=== PATIENT | male | born 1960 | race Caucasian/White ===

== ENCOUNTER 2016-06-28 21:28 | Observation (INO) | payer MEDICAID ==
[2016-06-28] MEDS ORDERED: IPRATROPIUM/ALBUTEROL (0.5MG/3MG) NEB INH ONE (21:51)
[2016-06-28] MEDS ORDERED: PREDNISONE 20 MG TAB PO ONE (21:51)
--- NOTE | 2016-06-28 21:55 | Emergency Department Record ---
History of Present Illness - General Chief Complaint: Cough Stated Complaint: COUGH,CHEST CONGESTION, Time Seen by Provider: 06/28/16 21:51 Source: Patient Mode of Arrival: Ambulatory Limitations: No limitations - History of Present Illness Initial Comments: 55 yo male with a history of COPD presents to ED with a CC of wheezing and difficulty breathing for the past several days. Patient denies fevers, chills, or recent illness, but does report that he has been using his albuterol at home without much relief. Patient denies chest pain symptoms. MD Complaint: Other Onset/Timin -: Days(s) Severity: Moderate Consistency: Constant Improves With: Nothing Worsens With: Nothing Context: Other (COPD) Associated Symptoms: Denies other symptoms Treatments Prior to Arrival: Other (albuterol) - Related Data Home Medications Medication Instructions Recorded Confirmed Last Taken Ipratropium/Albuterol Sulfate 1 inh INH ASDIR PRN 10/19/14 03/01/16 06/28/16 [Iprat-Albut 0.5-3(2.5) mg/3 ml] Albuterol Sulfate [Ventolin Hfa] 1 puff INH Q6H 09/04/15 03/01/16 06/28/16 Omeprazole [Prilosec] 20 mg PO DAILY 06/28/16 06/28/16 06/28/16 Umeclidinium [place] [Incruse 1 puff INH DAILY 06/28/16 06/28/16 06/28/16 Ellipta] Previous Rx's Medication Instructions Recorded Metoprolol Tartrate [Lopressor] 50 mg PO BID #60 tablet 12/12/14 Allergies Allergy/AdvReac Type Severity Reaction Status Date / Time No Known Drug Allergies Allergy Unknown Verified 06/28/16 21:40 [NO KNOWN DRUG ALLERGIES] Travel Screening - Travel/Exposure Within Last 30 Days Have you traveled within the last 30 days?: No - Travel/Exposure Within Last Year Have you traveled outside the [place] in the last year?: No - Additonal Travel Details Have you been exposed to anyone with a communicable illness?: No - Travel Symptoms Symptom Screening: None Review of Systems Constitutional: Denies: Chills, Fever, Malaise, Night sweats Eyes: Denies: Eye discharge, Eye pain ENT: Denies: Congestion, Ear pain, Epistaxis Respiratory: Reports: Dyspnea, Wheezes. Denies: Cough Cardiovascular: Denies: Chest pain, Edema, Palpitations Endocrine: Denies: Fatigue, Heat or cold intolerance Gastrointestinal: Denies: Abdominal pain, Nausea, Vomiting Genitourinary: Denies: Incontinence, Retention Musculoskeletal: Denies: Arthralgia, Back pain, Gout, Joint swelling Skin: Denies: Bruising, Change in color Neurological: Denies: Abnormal gait, Confusion, Headache, Seizure Psychiatric: Denies: Anxiety Hematological/Lymphatic: Denies: Anemia, Blood Clots Past Medical History - SOCIAL HISTORY Smoking Status: Current every day smoker Alcohol Use: None Drug Use: Heavy Drug Use Detail:: Marijuana - RESPIRATORY Hx Respiratory Disorders: Yes Hx COPD: Yes Hx Dyspnea: Yes (5-6ys ago) Hx Pneumonia: Yes - CARDIOVASCULAR Hx Cardio Disorders: Yes Hx Irregular Heartbeat: Yes ("they told me my heart doesn't beat like normal.") Hx Palpitations: Yes - NEURO Hx Neuro Disorders: Yes Hx Dizziness: Yes Hx Headaches: Yes - GI Hx GI Disorders: Yes Hx Reflux: Yes Hx Ulcer: Yes - Hx Genitourinary Disorders: No - ENDOCRINE Hx Endocrine Disorders: No Hx Diabetes: No Hx Thyroid Disease: No - MUSCULOSKELETAL Hx Musculoskeletal Disorders: Yes Hx Gout: Yes (bilat feet on occasion) - PSYCH Hx Psych Problems: Yes Hx Anxiety: Yes Hx Behavior Problems: Yes Hx Depression: Yes - HEMATOLOGY/ONCOLOGY Hx Hematology/Oncology Disorders: No Family Medical History Any Significant Family History?: No Hx Cancer: Mother Hx Diabetes: Brother/Sister Hx Heart Disease: Brother/Sister Physical Exam - General General Appearance: Alert, Oriented x3, Cooperative, No acute distress Limitations: No limitations - Head Head exam: Atraumatic, Normocephalic, Normal inspection Head exam detail: negative: Abrasion, Contusion, Wallis's sign, General tenderness, Hematoma, Laceration - Eye Eye exam: Normal appearance. negative: Conjunctival injection, Periorbital swelling, Periorbital tenderness, Scleral icterus - ENT Ear exam: negative: Auricular hematoma, Auricular trauma Nasal Exam: negative: Active bleeding, Discharge, Dried blood, Foreign body Mouth exam: negative: Drooling, Laceration, Muffled voice, Tongue elevation - Neck Neck exam: Normal inspection. negative: Meningismus, Tenderness - Respiratory Respiratory exam: Decreased breath sounds, Wheezes. negative: Rales, Respiratory distress, Rhonchi, Stridor - Cardiovascular Cardiovascular Exam: Normal rhythm, Normal heart sounds, Tachycardia - GI/Abdominal GI/Abdominal exam: Soft. negative: Rebound, Rigid, Tenderness - Rectal Rectal exam: Deferred - exam: Deferred - Extremities Extremities exam: Normal inspection. negative: Calf tenderness, Pedal edema, Tenderness - Back Back exam: Denies: CVA tenderness (R), CVA tenderness (L) - Neurological Neurological exam: Alert, Normal gait, Oriented X3 - Psychiatric Psychiatric exam: Normal affect, Normal mood - Skin Skin exam: Normal color. negative: Abrasion Type of lesion: negative: abrasion Course Vital Signs 06/28/16 21:44 Temperature 98.4 F Pulse Rate 134 H Respiratory 22 Rate Blood Pressure 148/106 Pulse Ox 90 L - Reevaluation(s) Reevaluation #1: 06/28/16 22:16 EKG: Sinus Tachycardia 174 Normal axis No acute ST-T wave changes Reevaluation #2: 06/28/16 22:42 CXR reviewed: No acute process, COPD, chronic interstitial changes present Reevaluation #3: 06/28/16 23:49 Labs reviewed and are grossly unremarkable for acute process. Patient's pulse remains elevated (160's-170's) on examination, will admit for further evaluation and treatment. Medical Decision Making - Lab Data Result diagrams: 06/28/16 22:50 06/28/16 22:50 Disposition Disposition: Admit Clinical Impression: Acute exacerbation of chronic obstructive pulmonary disease (COPD), Tachycardia Disposition: Still a Patient at [facility] Decision to Admit: Admit from ER Decision to Admit Date: 06/28/16 Decision to Admit Time: 23:50 Condition: (2) Stable Forms: Patient Portal Access Time of Disposition: 23:50
[2016-06-28] MEDS ORDERED: 0.9 % SODIUM CHLORIDE 1000ML 1,000 ML IV SCH (22:15)
[2016-06-28 23:16] LABS: BASO % 0.2 % (0-6); EOS % 6.5 % (0-6); GRAN % 68.4 % (47-80); HEMATOCRIT 48.6 % (42.0-52.0); HEMOGLOBIN 15.6 gm/dl (14.0-18.0); LYMPH % 13.8 % (16-45); MEAN CELL VOLUME 77.5 fl (81-97); MEAN CORPUSCULAR HGB CONC 32.1 g/dl (32-36); MEAN PLATELET VOLUME 9.9 fl (7.4-10.4); MONO % 11.1 % (0-9); PLATELET COUNT 327 K/uL (130-400); RED BLOOD COUNT 6.27 M/uL (4.40-5.70); RED CELL DISTRIBUTION WIDTH 17.8 % (11.5-14.5); WHITE BLOOD COUNT W/O DIFF 8.7 K/uL (4.2-12.2)
[2016-06-28 23:18] LABS: MEAN CORPUSCULAR HEMOGLOBIN 24.8 pg (27-33)
[2016-06-28 23:28] LABS: ALB/GLOB RATIO 1.3 (1.1-1.8); ALBUMIN 4.3 gm/dL (3.5-5.0); ALKALINE PHOSPHATASE 105 U/L (38-126); ALT/SGPT 25 U/L (21-72); AST/SGOT 22 U/L (17-59); BILIRUBIN,TOTAL 0.37 mg/dL (0.2-1.3); BLOOD UREA NITROGEN 9 mg/dL (9-20); CREATINE PHOSPHOKINASE 306 U/L (55-170); CREATININE 0.9 mg/dL (0.66-1.25); EST GLOMERULAR FILTRATION RATE > 60 ml/min; GLUCOSE,RANDOM 131 mg/dL (70-110); TOTAL PROTEIN 7.6 gm/dL (6.3-8.2)
[2016-06-28 23:38] LABS: CKMB 3.1 ug/L (0-6); TROPONIN I 0.016 ng/mL (0.00-0.034)
[2016-06-29] MEDS ORDERED: IPRATROPIUM/ALBUTEROL (0.5MG/3MG) NEB INH PRN (00:37)
[2016-06-29] MEDS: 0.9 % SODIUM CHLORIDE 1000ML 1,000 ML IV PRN ×2 (01:15→09:01)
[2016-06-29] MEDS: ALBUTEROL SULFATE (0.083%) 2.5 MG/3 ML NEB INH SCH ×4 (02:19→13:55)
[2016-06-29 03:19] LABS: INR 0.94; PARTIAL THROMBOPLASTIN TIME 32.8 SECONDS (24.5-39.1); PROTHROMBIN TIME (PATIENT) 10.6 SECONDS (9.5-12.1)
[2016-06-29] MEDS ORDERED: METHYLPREDNISOLONE PF 125MG/VIAL IVP SCH ×2 (10:00→10:58)
[2016-06-29] MEDS ORDERED: UMECLIDINIUM BROMIDE INH SCH (10:00)
[2016-06-29] MEDS ORDERED: METOPROLOL TART 50 MG TABLET PO SCH (10:00)
[2016-06-29] MEDS ORDERED: PANTOPRAZOLE SODIUM 40 MG TABLET PO SCH (10:00)
[2016-06-29] MEDS ORDERED: LEVOFLOXACIN 500 MG TABLET PO SCH (11:00)
--- NOTE | 2016-06-29 15:29 | Discharge Note ---
Discharge Note - Date Date of Discharge Note: 06/29/16 Disposition: Home, Self-Care Condition: (2) Stable Additional Instructions: follow up with Dr. Montaño in 2 to 10 days. stop cigs stop Lopressor because he doesn't like taking that medication twice a day and will go to toprol once a day stay off alcohol zithromycin 500 mg once a day for 7 days continue home meds Prescriptions: Azithromycin [Zithromax] 500 mg PO DAILY #7 tab Forms: Patient Portal Access
--- NOTE | 2016-06-30 08:11 | RADIOLOGY REPORT ---
EXAM: CHEST, TWO VIEWS HISTORY: COUGH AND DIFFICULTY BREATHING. TECHNIQUE: PA and lateral upright views of the chest were obtained. Comparison: 03/01/16. FINDINGS: The heart, mediastinum, and pulmonary vasculature are normal. The lungs are emphysematous. Chronic interstitial changes are present within the mid and lower lung esquivel and appear similar. There are no visible acute infiltrates or effusions. There is no pneumothorax. The bones appear intact. IMPRESSION: 1. STABLE COPD AND CHRONIC INTERSTITIAL CHANGES. 2. NO ACUTE CHEST PATHOLOGY. JOB NUMBER: [id number] MTDD
--- NOTE | 2016-06-30 12:04 | History and Physical Report ---
CHIEF COMPLAINT: Dyspnea and tachycardia. HISTORY OF PRESENT ILLNESS: The patient s a 55-year-old male who presented to the emergency department with wheezing and difficulty breathing for the last several days. He was using his inhaler at home but was short of breath. The patient denied chest pain. He came to the emergency department and was evaluated by Dr. Mac who diagnosed him with atrial fibrillation with a fast response. He gave him some Cardizem and he converted after about one to two hours in the emergency department to normal sinus rhythm. He has been in normal sinus rhythm since. The patient was breathing much better after he converted to normal sinus rhythm. However, he also has underlying chronic obstructive pulmonary disease and wheezing from his lung disease and smoking cigarettes at one pack of cigarettes per day. Discussing the case with Sasha , his power of counter supervisor, she states that he refused to do any sort of testing, EGD, colonoscopy, anything like that, because he has pain with swallowing. The patient stopped drinking because the alcohol was burning his throat every time he swallowed. However, he is refusing to have an EGD to check it out further. With his long history of alcoholism my concern is that the patient could have varices and is at very high risk for bleeding from his varices. Therefore, no anticoagulation therapy given in the hospital. His primary physician has been Dr. Yang in [place], but he states he wants to switch to Dr. Meadows. His lung doctor is in [place]. He could not remember the name of his lung doctor. He has been going to him for five to six years. PAST MEDICAL HISTORY: He has had some diabetes, but since he stopped drinking his sugars have normalized. He also has hypercholesterolemia, hypertension, chronic obstructive pulmonary disease, and alcoholism. He has had some episodes of atrial fibrillation; most of them related to when he drinks alcohol. He has not been drinking alcohol for the last [id number]-half. Occasionally he becomes noncompliant with his medications. Sasha also said that during this hospitalization he stopped taking the Lopressor twice a day; he only wanted to take it once a day. That could be a reason for having breakthrough atrial fibrillation. The Lopressor lasts for 12 hours, and when he stops taking it he may get into trouble with a rapid rhythm and atrial fibrillation. I talked with him about this, and we will switch to a once a day Toprol medication. PAST SURGICAL HISTORY: He had an ulcer, and it was resected at [facility] approximately three years ago. Ever since then whenever he drinks alcohol it gallegos his throat in the esophagus. He almost bled to at that time. MEDICATIONS ON ADMISSION: He is on DuoNebs q. four hours p.r.n., Lopressor 5.0 mg b.i.d., Ventolin inhaler one to two puffs every six hours p.r.n. when he is ambulatory. He is also on Incruse Ellipta 62.5 mcg one puff daily and omeprazole 20 mg q. daily. ALLERGIES: No known drug allergies. FAMILY/PSYCHOSOCIAL HISTORY: He smokes one pack of cigarettes per day. Otherwise his family history is unremarkable. He has not been drinking for the last jylx-[id number]-half. REVIEW OF SYSTEMS: HEENT: He does have a little bit of rhinorrhea and a cough which has been worse in the last few days. Cardiovascular: No chest pain. When he came in he had palpitations and a tachycardia. Respiratory: He has a dry cough. His breathing is back to baseline at this time. Gastrointestinal: No nausea, vomiting, diarrhea, black stools, or bloody stools. Genitourinary: No dysuria, hematuria, frequency, or burning on urination. Musculoskeletal: He does have some arthritis in his joints, but he is ambulatory without any difficulties. Neurologic: No cerebrovascular accident, paralysis, or paraesthesias. Endocrine: No diabetes or thyroid disease. Integument: No rash, ulcers, changing moles, or yellow skin. PHYSICAL EXAMINATION: General: Height is 5 feet, 2 inches. Weight is 148 pounds. Vital Signs: Temperature is 98.5, pulse is 109, blood pressure is 127/82, respiratory rate is 20, pulse oximetry is 84%. HEENT: Pupils are equal, round, and reactive to light and accommodation. Extraocular muscles are intact. The throat is clear. The nose is clear. The tympanic membranes are vega. Neck: The neck is supple. No jugular venous distension. No hepatojugular reflex. No carotid bruit. The thyroid is smooth. Cardiovascular: Regular rate and rhythm without murmurs, clicks, rubs, or gallops. Normal sinus rhythm. Respiratory: Decreased breath sounds bilaterally. Scant wheezing noted. Abdomen: Soft and nontender. No hepatosplenomegaly. No masses. No tenderness. Bowel sounds are active. Extremities: No pitting edema. No cyanosis. No clubbing. Full range of motion. Peripheral pulses are good. Breasts: Normal male breasts. Rectal Examination: Deferred. Genitalia: Normal male genitalia. Neurological Examination: Cranial nerves II through XII are intact. No gross defect. Sensation is normal. Strength is normal. Deep tendon reflexes are equal bilaterally. Babinski is negative. Mental Status: Alert and oriented times three. IMPRESSIONS: 1. Atrial fibrillation with a fast response. Converted to sinus rhythm in the emergency department with intravenous Cardizem. 2. Chronic obstructive pulmonary disease. 3. Acute bronchitis. 4. A history of alcoholism. 5. A history of ulcer disease. He almost bled to at [facility]. 6. Tobacco use disorder. PLAN: The patient is in normal sinus rhythm. We monitored him on the monitor throughout the night. He is walking around the room and he wants to go home. I will review his chart and see if it is appropriate to send him home at this time. Aj Rosales D.O. Date Time JOB NUMBER: [id number] MTDD
--- NOTE | 2016-06-30 14:17 | Discharge Summary ---
DISCHARGE DIAGNOSES: 1. Atrial fibrillation with a fast response. Converted with intravenous Cardizem in the emergency department. 2. Acute bronchitis. 3. Chronic obstructive pulmonary disease exacerbation. 4. A history of alcoholism. 5. A history of a gastric ulcer with which he almost bled to and for which he required gastric surgery. 6. A history of being noncompliant with his Lopressor. He is only taking it once a day instead of twice a day. ATTENDING PHYSICIAN: Aj Roasles D.O. REASON FOR HOSPITALIZATION: Tachycardia and dyspnea. HISTORY OF THE PRESENT ILLNESS: This 55-year-old male presented to the emergency department short of breath for the last two days. He admits to having a little rhinorrhea and a cough. When he came in to the emergency department, he had a tachycardia and atrial fibrillation. He was given intravenous Cardizem and converted in the emergency department. He was admitted to the hospital for further evaluation and observation. SIGNIFICANT FINDINGS: He remained in normal sinus rhythm throughout the hospitalization. I discussed the case with Sasha who said he was not taking his Lopressor twice a day like he was supposed to because he just did not want to do that. Because of that I went and talked with him about this. He said that he would like to take a medication that is once a day. We will therefore switch his Lopressor 50 mg twice a day to metoprolol 50 mg once a day. Hopefully that will keep him from drifting down on his beta alfonso and will keep him in normal sinus rhythm. LABORATORY DATA: White blood cell count was 8,700, hemoglobin was 15.6. Potassium was 4.2. BUN was 9.0 and creatinine was 0.9. Glucose was 131. CKMB was normal at 3.1. Troponin was normal at 0.016. Alcohol level was negative. DIAGNOSTIC DATA: Initially the first two EKGs showed atrial fibrillation with a fast response. His last EKG showed normal sinus rhythm. No ST T-wave changes. He stated he felt much better with his breathing once he converted into normal sinus rhythm. HOSPITAL COURSE: The patient has been basically back to his baseline ever since he converted to normal sinus rhythm. He does state that he is a little more short of breath because of the congestion and cough that he developed about two to three days ago. He was given one dose of Levaquin intravenous in the emergency department and was switched over to oral azithromycin 500 mg once a day. There are concerns about him bleeding because of the peptic ulcer that he had approximately one to two years ago requiring stomach surgery. He almost in the hospital at [facility]. He also is currently refusing to have any EGD, colonoscopy, or any procedure like that that. I feel that with his long-term history of alcoholism, he is at high risk for varices and bleeding again. I have therefore opted not to go with anticoagulation therapy at this time. He can follow up with Dr. Meadows where this can be discussed further. He can also possibly have a cardiac evaluation. He has been evaluated by Cardiology at [facility] before. When he was drinking, it was felt that he was at way to high of a risk for anticoagulation. Now that he has stopped drinking, I think his esophagus can be evaluated. He stated the reason he stopped drinking was because it hurts so bad when he drinks alcohol that his esophagus gallegos. This tells me that he potentially could have more problems with his esophagus and is at higher risk for bleeding. CONDITION AT DISCHARGE: Much improved. DISCHARGE INSTRUCTIONS: Follow up with Dr. Meadows in one to ten days. Azithromycin 500 mg q. daily for seven days. Stop smoking cigarettes. Prednisone 20 mg b.i.d. for four days. Continue his home medications including : DuoNeb q. four hours while awake. When he is out and around, he can use albuterol and Ventolin two puffs q. six hours p.r.n. Omeprazole 20 mg q. daily. Incruse Ellipta one puff daily. Prednisone 20 mg b.i.d., as I stated above, will be new for four more days. Aj Rosales D.O. Date Time JOB NUMBER: [id number] cc: Ml Cabello
== END 2016-06-29 16:34 | disposition home or self-care (01) ==
LOC: ER 21:28 → MEDSURG 06-29 00:24
PROVIDERS: ADMIT Family Medicine; ATTEND Family Medicine
DX: I48.0 Paroxysmal atrial fibrillation (principal); J44.0 Chronic obstructive pulmonary disease with (acute) lower respiratory infection; J20.9 Acute bronchitis, unspecified; F17.200 Nicotine dependence, unspecified, uncomplicated; E78.00 Pure hypercholesterolemia, unspecified; F10.21 Alcohol dependence, in remission; Z91.14 Patient's other noncompliance with medication regimen; Z79.01 Long term (current) use of anticoagulants
CPT/HCPCS: 99285 ×2; 82550; 85025; 85730; 85610; 82553; 84484; 80053; 71020; 94640 ×2; 93005 ×2; 93010 ×2; G0378; G0480; J7512; 80320; 99236; J2930; J7030; J7613

== ENCOUNTER 2016-09-15 18:19 | Emergency (ER) | payer MEDICAID ==
--- NOTE | 2016-09-15 19:04 | Emergency Department Record ---
History of Present Illness - General Chief Complaint: Abdominal Pain Stated Complaint: ABD PAIN,VOMITING Time Seen by Provider: 09/15/16 19:02 Source: Patient Mode of Arrival: Ambulatory Limitations: No limitations - History of Present Illness Initial Comments: The patient is here due to a 2 week hx of intermittent nausea and vomiting with upper abdominal pain. Presently he has no pain but it does come and go. There is no diarrhea but he is moving his bowels normally. He denies any blood in the vomit and no fevers, chills, CP, SOB or back pain. The patient has had an abdominal surgery in the past for a presumed ulcer and he thinks he had part of his stomach removed. The patient has a hx of heavy drinking but no longer drinks alcohol. MD Complaint: Abdominal pain Onset/Timin -: Week(s) Location: Periumbilical Radiation: None Migration to: No migration Severity: Mild Quality: Cramping Consistency: Intermittent Improves With: Nothing Worsens With: Eating Associated Symptoms: Nausea, Vomiting - Related Data Home Medications Medication Instructions Recorded Confirmed Last Taken Ipratropium/Albuterol Sulfate 1 inh INH ASDIR PRN 10/19/14 09/15/16 09/15/16 [Iprat-Albut 0.5-3(2.5) mg/3 ml] Albuterol Sulfate [Ventolin Hfa] 1 puff INH Q6H 09/04/15 09/15/16 09/15/16 Omeprazole [Prilosec] 20 mg PO DAILY 06/28/16 09/15/16 09/15/16 Umeclidinium [place] [Incruse 1 puff INH DAILY 06/28/16 09/15/16 09/15/16 Ellipta] Previous Rx's Medication Instructions Recorded Prednisone [Prednisone 20Mg] 20 mg PO BID #8 tab 06/29/16 Ondansetron [Zofran Odt] 4 mg SL .Q4-6H PRN #12 tab.rapdis 09/15/16 Allergies Allergy/AdvReac Type Severity Reaction Status Date / Time No Known Drug Allergies Allergy Unknown Verified 09/15/16 18:56 [NO KNOWN DRUG ALLERGIES] Travel Screening - Travel/Exposure Within Last 30 Days Have you traveled within the last 30 days?: No Review of Systems Constitutional: Denies: Chills, Fever Eyes: Denies: Eye discharge ENT: Denies: Congestion Respiratory: Denies: Cough, Dyspnea Cardiovascular: Denies: Arrhythmia Past Medical History - SOCIAL HISTORY Smoking Status: Current every day smoker Alcohol Use: None Drug Use: Occassional Drug Use Detail:: Marijuana - RESPIRATORY Hx Respiratory Disorders: Yes Hx COPD: Yes Hx Dyspnea: Yes Hx Pneumonia: Yes - CARDIOVASCULAR Hx Cardio Disorders: Yes Hx Irregular Heartbeat: Yes ("they told me my heart doesn't beat like normal.") Hx Palpitations: Yes - NEURO Hx Neuro Disorders: Yes Hx Dizziness: Yes Hx Headaches: Yes - GI Hx GI Disorders: Yes Hx Reflux: Yes Hx Ulcer: Yes - Hx Genitourinary Disorders: No - ENDOCRINE Hx Endocrine Disorders: No - MUSCULOSKELETAL Hx Musculoskeletal Disorders: Yes Hx Gout: Yes (bilat feet on occasion) - PSYCH Hx Psych Problems: Yes Hx Anxiety: Yes Hx Behavior Problems: Yes Hx Depression: Yes - HEMATOLOGY/ONCOLOGY Hx Hematology/Oncology Disorders: No Family Medical History Any Significant Family History?: Yes Hx Cancer: Mother Hx Diabetes: Brother/Sister Hx Heart Disease: Brother/Sister Physical Exam - General General Appearance: Alert, Oriented x3, Cooperative, No acute distress - Head Head exam: Atraumatic, Normocephalic, Normal inspection - Eye Eye exam: Normal appearance, PERRL - ENT Throat exam: Normal inspection. negative: Tonsillar erythema, Tonsillar exudate - Neck Neck exam: Normal inspection, Full ROM. negative: Tenderness - Respiratory Respiratory exam: Normal lung sounds bilaterally. negative: Respiratory distress - Cardiovascular Cardiovascular Exam: Regular rate, Normal rhythm, Normal heart sounds - GI/Abdominal GI/Abdominal exam: Soft, Normal bowel sounds. negative: Guarding, Rebound, Rigid, Tenderness - Extremities Extremities exam: Normal inspection, Full ROM, Normal capillary refill. negative: Tenderness Course Vital Signs 09/15/16 18:57 Temperature 98.2 F Pulse Rate 63 Respiratory 20 Rate Blood Pressure 119/66 Pulse Ox 94 L - Reevaluation(s) Reevaluation #1: The patient is doing much better at this time. He denies any pain or nausea. On exam his abdomen is very soft and nontender in all 4 quads. 09/15/16 20:04 Reevaluation #2: The patient is doing much better at this time. He denies any abdominal pain, nausea, or vomiting. He is drinking fluids well with no pain or vomiting. He feels ready for home. 09/15/16 20:22 Medical Decision Making - Data Complexity MDM Data: Labs Ordered and/or Reviewed - Lab Data Result diagrams: 09/15/16 19:35 09/15/16 19:35 Disposition Disposition: Discharge Clinical Impression: Vomiting Qualifiers: Vomiting type: unspecified Vomiting Intractability: non-intractable Nausea presence: with nausea Qualified Code(s): R11.2 - Nausea with vomiting, unspecified Disposition: Home, Self-Care Condition: (1) Good Instructions: Acute Nausea and Vomiting (ED) Additional Instructions: Please eat a very bland diet for a day and slowly advance. Please use the Zofran for nausea. Please see your PCP for recheck in 2-3 days if not better. Return to the ER for any pain, fever, or return of the vomiting. Prescriptions: Ondansetron [Zofran Odt] 4 mg SL .Q4-6H PRN #12 tab.rapdis PRN Reason: Nausea Forms: Patient Portal Access Time of Disposition: 20:25
[2016-09-15] MEDS ORDERED: 0.9 % SODIUM CHLORIDE 1,000 ML BAG IV ONE (19:07)
[2016-09-15] MEDS ORDERED: ONDANSETRON HCL IV 4 MG/2 ML VIAL IV ONE (19:07)
[2016-09-15 19:42] LABS: BASO % 0.3 % (0-6); EOS % 4.9 % (0-6); GRAN % 71.8 % (47-80); HEMATOCRIT 43.9 % (42.0-52.0); HEMOGLOBIN 13.7 gm/dl (14.0-18.0); LYMPH % 15.5 % (16-45); MEAN CELL VOLUME 78.3 fl (81-97); MEAN CORPUSCULAR HEMOGLOBIN 24.4 pg (27-33); MEAN CORPUSCULAR HGB CONC 31.2 g/dl (32-36); MEAN PLATELET VOLUME 9.8 fl (7.4-10.4); MONO % 7.5 % (0-9); PLATELET COUNT 335 K/uL (130-400); RED BLOOD COUNT 5.61 M/uL (4.40-5.70); RED CELL DISTRIBUTION WIDTH 17.6 % (11.5-14.5); WHITE BLOOD COUNT W/O DIFF 9.1 K/uL (4.2-12.2)
[2016-09-15 19:53] LABS: ALKALINE PHOSPHATASE 95 U/L (38-126); ALT/SGPT 18 U/L (21-72); ANION GAP 9.1 (7-16); AST/SGOT 17 U/L (17-59); BILIRUBIN,TOTAL 0.54 mg/dL (0.2-1.3); BLOOD UREA NITROGEN 11 mg/dL (9-20); CARBON DIOXIDE 25.9 mmol/L (22-30); EST GLOMERULAR FILTRATION RATE > 60 ml/min; GLUCOSE,RANDOM 104 mg/dL (70-110); LIPASE 86 U/L (23-300); TOTAL PROTEIN 6.8 gm/dL (6.3-8.2)
[2016-09-15 19:54] LABS: INR 0.98; PARTIAL THROMBOPLASTIN TIME 27.8 SECONDS (24.5-39.1); PROTHROMBIN TIME (PATIENT) 11.1 SECONDS (9.5-12.1)
[2016-09-15 20:11] LABS: URINE APPEARANCE CLEAR; URINE BILIRUBIN NEGATIVE (NEGATIVE); URINE BLOOD NEGATIVE (NEGATIVE); URINE COLOR YELLOW; URINE GLUCOSE (UA) NEGATIVE (NEGATIVE); URINE KETONE NEGATIVE (NEGATIVE); URINE LEUKOCYTE ESTERASE NEGATIVE (NEGATIVE); URINE NITRITE NEGATIVE (NEGATIVE); URINE PROTEIN NEGATIVE (NEGATIVE); URINE UROBILINOGEN 0.2 E.U./dL (0.20 - 1.00)
== END 2016-09-15 20:44 | disposition home or self-care (01) ==
LOC: ER 18:19
DX: R11.2 Nausea with vomiting, unspecified (principal); R10.33 Periumbilical pain
CPT/HCPCS: 99284 ×2; 96374; 96361; 83690; 85025; 85730; 85610; 80076; 80048; 81003; J2405; J7030

== ENCOUNTER 2017-10-18 04:59 | Observation (INO) | payer MEDICAID ==
[2017-10-18] MEDS ORDERED: IPRATROPIUM/ALBUTEROL (0.5MG/3MG) NEB INH ONE (05:18)
--- NOTE | 2017-10-18 05:22 | Emergency Department Record ---
History of Present Illness - General Chief Complaint: Difficulty Breathing Stated Complaint: JAIME Time Seen by Provider: 10/18/17 05:14 Source: Patient Mode of Arrival: Ambulatory Limitations: No limitations - History of Present Illness Initial Comments: The patient is here due to waking up at home an hour ago and feeling mildly SOB. He denies any chest pain, palpitations, fever, chills, ACEVES, visual changes, but states his chronic cough has been worse lately. The patient is a heavy smoker and is on inhallers and states he has not run out of them. He denies any recent illnesses. MD Complaint: Shortness of breath Onset/Timin -: Hour(s) Severity: Mild - Related Data Home Medications Medication Instructions Recorded Confirmed Last Taken Aspirin 325 mg PO DAILY 10/18/17 10/18/17 Unknown Allergies Allergy/AdvReac Type Severity Reaction Status Date / Time No Known Drug Allergies Allergy Unknown Unverified 02/11/17 11:13 [NO KNOWN DRUG ALLERGIES] Travel Screening - Travel/Exposure Within Last 30 Days Have you traveled within the last 30 days?: No - Travel/Exposure Within Last Year Have you traveled outside the [place] in the last year?: No - Additonal Travel Details Have you been exposed to anyone with a communicable illness?: No - Travel Symptoms Symptom Screening: None Review of Systems Constitutional: Denies: Chills, Fever Eyes: Denies: Eye discharge ENT: Reports: Congestion. Denies: Dental pain Respiratory: Reports: Cough, Dyspnea. Denies: Hemoptysis Cardiovascular: Denies: Arrhythmia, Chest pain, Dyspnea on exertion Past Medical History - SOCIAL HISTORY Smoking Status: Heavy tobacco smoker (>10/day) Alcohol Use: None Drug Use: Occasional Drug Use Detail:: Marijuana - RESPIRATORY Hx Respiratory Disorders: Yes Hx COPD: Yes Hx Dyspnea: Yes Hx Pneumonia: Yes - CARDIOVASCULAR Hx Cardio Disorders: Yes Hx Irregular Heartbeat: Yes ("they told me my heart doesn't beat like normal.") Hx Palpitations: Yes - NEURO Hx Neuro Disorders: Yes Hx Dizziness: Yes Hx Headaches: Yes - GI Hx GI Disorders: Yes Hx Reflux: Yes Hx Ulcer: Yes - Hx Genitourinary Disorders: No - ENDOCRINE Hx Endocrine Disorders: No Hx Diabetes: No Hx Thyroid Disease: No - MUSCULOSKELETAL Hx Musculoskeletal Disorders: Yes Hx Gout: Yes (bilat feet on occasion) - PSYCH Hx Psych Problems: Yes Hx Anxiety: Yes Hx Behavior Problems: Yes Hx Depression: Yes - HEMATOLOGY/ONCOLOGY Hx Hematology/Oncology Disorders: No Family Medical History Any Significant Family History?: No Hx Cancer: Mother Hx Diabetes: Brother/Sister Hx Heart Disease: Brother/Sister Physical Exam - General General Appearance: Alert, Oriented x3, Cooperative, No acute distress - Head Head exam: Atraumatic, Normocephalic, Normal inspection - Eye Eye exam: Normal appearance, PERRL - ENT Throat exam: Normal inspection. negative: Tonsillar erythema, Tonsillar exudate - Neck Neck exam: Normal inspection, Full ROM. negative: Tenderness - Respiratory Respiratory exam: Decreased breath sounds (L side diffusely. The R lung appears clear.). negative: Normal lung sounds bilaterally, Accessory muscle use, Rales , Respiratory distress, Rhonchi, Stridor, Wheezes - Cardiovascular Cardiovascular Exam: Regular rate, Normal rhythm, Normal heart sounds - GI/Abdominal GI/Abdominal exam: Soft, Normal bowel sounds. negative: Tenderness - Extremities Extremities exam: Normal inspection, Full ROM, Normal capillary refill. negative: Tenderness - Neurological Neurological exam: Alert, Normal gait. negative: Abnormal gait, Motor sensory deficit Course Vital Signs 10/18/17 05:07 Temperature 98.8 F Pulse Rate 76 Respiratory 20 Rate Blood Pressure 132/83 Pulse Ox 90 L - Reevaluation(s) Reevaluation #1: The patient is doing slightly better at this time and his RA O2 sats are running 91-93%. On exam his L lung is still quite diminished compared to the R side. The patient still does have a very significant junky sounding cough. Due to the CXR demonstrating bilateral lower air space dz we will admit the patient overnight on IV Abx's and frequent breathing tx's. 10/18/17 06:40 Medical Decision Making - Data Complexity MDM Data: Labs Ordered and/or Reviewed, X-Ray Ordered and/or Reviewed - Lab Data Result diagrams: 10/18/17 06:01 10/18/17 06:01 - Radiology Data Radiology results: Report reviewed (CXR: Bilateral lower lobe airspace dz.) Disposition Disposition: Admit Clinical Impression: Acute exacerbation of chronic obstructive pulmonary disease (COPD) Disposition: Still a Patient at [facility] Decision to Admit: Admit from ER Decision to Admit Date: 10/18/17 Decision to Admit Time: 06:43 Accepting Physician: Connie Time Discussed w/Accepting Physician: 06:43 Condition: (2) Stable Time of Disposition: 06:43 Quality - Quality Measures Quality Measures: N/A - Blood Pressure Screening View Details: Yes Does Patient Have Any of the Following: No Blood Pressure Classification: Pre-Hypertensive BP Reading Systolic Measurement: 132 Diastolic Measurement: 83 Screening for High Blood Pressure: < Pre-Hypertensive BP, F/U Documented > [ G8950] Pre-Hypertensive Follow-up Interventions: Referral to alternative/primary care provider.
[2017-10-18] MEDS ORDERED: METHYLPREDNISOLONE PF 125MG/VIAL IVP ONE (05:48)
[2017-10-18] MEDS ORDERED: ALBUTEROL SULFATE (0.083%) 2.5 MG/3 ML NEB INH ONE (05:48)
[2017-10-18] MEDS ORDERED: LEVOFLOXACIN/D5W 750 MG/150 ML BAG IVPB ONE (06:02)
[2017-10-18 06:17] LABS: HEMATOCRIT 46.1 % (42.0-52.0); HEMOGLOBIN 15.3 gm/dl (14.0-18.0); MEAN CELL VOLUME 80.9 fl (81-97); MEAN CORPUSCULAR HEMOGLOBIN 26.8 pg (27-33); MEAN CORPUSCULAR HGB CONC 33.2 g/dl (32-36); MEAN PLATELET VOLUME 9.5 fl (7.4-10.4); PLATELET COUNT 324 K/uL (130-400); RED CELL DISTRIBUTION WIDTH 16.6 % (11.5-14.5); WHITE BLOOD COUNT W/O DIFF 11.5 K/uL (4.2-12.2)
[2017-10-18 06:27] LABS: BLOOD UREA NITROGEN 9 mg/dL (6-20); CREATININE 1.1 mg/dL (0.7-1.2); EST GLOMERULAR FILTRATION RATE > 60 mL/min; TOTAL PROTEIN 7.2 g/dL (6.6-8.7)
[2017-10-18 06:29] LABS: GLUCOSE,RANDOM 122 mg/dL (74-109)
[2017-10-18 06:32] LABS: ALB/GLOB RATIO 1.5 (1.1-1.8); ALBUMIN 4.3 g/dL (4.0-5.0); ALKALINE PHOSPHATASE 105 U/L (40-129); ALT/SGPT 10 U/L (<41); AST/SGOT 16 U/L (10.0-50.0)
[2017-10-18] MEDS ORDERED: ACETAMINOPHEN 325 MG TAB PO PRN (06:43)
--- NOTE | 2017-10-18 08:21 | Inpatient Certification ---
Inpatient Certification Admit to inpatient care: Based on my medical assessment, after consideration of patient's risk factors (age, co-morbidities and patient presenting symptoms and acuity), I expect that this patient will remain in the hospital greater than or equal to two midnights and that the services needed warrant inpatient care because: Patient Risk Factors: [copd, hypoxia] Estimated length of stay: [2 days] The patient may reasonably be expected to be discharged or transferred to a hospital within 96 hours after admission to [facility]. Services needed: [IV antibiotics, oxygen breathing treatments and solumedrol] Post hospital care (if known): [] I certify that my determination is in accordance with my understanding of Medicare requirements for reasonable and necessary inpatient services. 10/18/17 08:22
[2017-10-18] MEDS ORDERED: METOPROLOL SUCC 25 MG TAB.ER PO SCH (10:00)
[2017-10-18] MEDS ORDERED: ASPIRIN 325 MG TAB ENTERIC-COATED PO SCH (10:00)
[2017-10-18] MEDS: IPRATROPIUM/ALBUTEROL (0.5MG/3MG) NEB INH SCH ×2 (10:35→14:22)
--- NOTE | 2017-10-19 07:28 | RADIOLOGY REPORT ---
EXAM: CHEST, TWO VIEWS HISTORY: CHEST PAIN. TECHNIQUE: Frontal and lateral views of the chest were obtained. Comparison: 06/28/16 chest. FINDINGS: The heart size is normal. Osteopenia. COPD. Coarse interstitial changes bilaterally. Patchy air space opacities over the lung bases. No pneumothorax. IMPRESSION: COPD. MIXED INTERSTITIAL INTERSPACE OPACITIES. FINDINGS MAY REFLECT PNEUMONITIS. RECOMMEND SHORT TERM FOLLOW-UP. JOB NUMBER: [id number] MTDD
[2017-10-19] MEDS ORDERED: LEVOFLOXACIN/D5W 750 MG/150 ML BAG IVPB SCH (08:00)
--- NOTE | 2017-10-19 13:10 | History and Physical Report ---
DATE OF ADMISSION: 10/18/2017 CHIEF COMPLAINT: Shortness of breath, cough, started approximately this morning at about 4:00 a.m. HISTORY OF CHIEF COMPLAINT: He states he has had a chronic cough, and he is a heavy smoker, 2 packs a day, but I cut him back to 1 pack a day in the last couple weeks. He is a known COPD patient, ex-alcoholic, stopped drinking about 3 years ago when his liver almost failed. He was seen in the emergency department by Dr. Duque with a chest x-ray that shows an infiltrate in the left upper lobe and was admitted to the hospital for IV antibiotics of Levaquin, breathing treatments, and further evaluation. PAST MEDICAL HISTORY: Hypercholesterolemia, hypertension, COPD, history of alcoholism, stopped 3 years ago because of liver failure, which has resolved; and also a GI bleed, which almost killed him. He has had atrial fibrillation, mostly when he is having alcohol, and currently he is normal sinus rhythm, and he is trying to stop smoking. PAST SURGICAL HISTORY: He has had surgery of his stomach where an ulcer was removed because it was bleeding. CURRENT MEDICATIONS: Medications on admission: He is on aspirin 325 mg a day, Incruse Ellipta 1 inhalation a day, Qvar 2 puffs b.i.d., Atenolol, not sure if he is still taking that; it is on his med list 25 mg once a day; Proventil 2 puffs every 4 hours p.r.n. ALLERGIES: No known drug allergies. FAMILY HISTORY/SOCIAL HISTORY: Unremarkable. The patient lives alone. He has a POA that takes care of his financial things for him. He smokes about 2 packs a day, and he has recently cut back to 1 pack a day. SYSTEMS REVIEW: He has congestion and cough, but that is chronic. He is mostly short of breath, and that is why he came in today and coughing up some phlegm. He denies a fever. He denies a sore throat. He is short of breath but doing much better after breathing treatment here in the emergency department. Cardiovascular: He denies chest pain. He denies any palpations or irregular heartbeat. Gastrointestinal: He denies nausea, vomiting, diarrhea. No melena or hematochezia. Genitourinary: He denies dysuria, hematuria, frequency, or burning on urination. Neurological: He denies any episodes of syncope or paralysis. Extremities: He denies any swelling, discoloration, or pain in his extremities. PHYSICAL EXAMINATION: VITAL SIGNS: Height: 5 feet 2 inches. Weight: 130 pounds. Temperature: 98.8. Pulse: 90. Blood Pressure: 132/83. Respiratory Rate: 20. Pulse Oximetry: 94% on room air. HEENT: Pupils equal, round, and reactive to light and accommodation. Extraocular muscles intact. Throat is clear. Nose is clear. Tympanic membranes are vega. Neck is supple. No JV distention. No hepatojugular reflex. No carotid bruits. Thyroid is smooth. LUNGS: Currently, his respirations are clear to auscultation and percussion; however, he was wheezing upon arrival to the emergency department. HEART: Regular rate and rhythm without murmurs, clicks, rubs, or gallops. ABDOMEN: Soft, nontender. No hepatosplenomegaly. No tenderness. Bowel sounds active. No bruits. EXTREMITIES: No pitting edema. No cyanosis, no clubbing. Full range of motion. Peripheral pulses are good. BREASTS: Normal male breasts. RECTAL/GENITALIA: Deferred. NEUROLOGIC: Cranial nerves 2 through 12 intact. No gross defects. Sensation normal. Strength normal. Deep tendon reflexes are bilateral. Babinski negative. Mental status: Alert and oriented x3. IMPRESSION: 1. Pneumonia, left lower lobe. 2. Acute exacerbation of COPD. Chest x-ray showing bilateral lower airspace disease, much more on the left side. 3. History of alcoholism but stopped drinking 3 years ago. 4. Tobacco use disorder. PLAN: 1. IV Levaquin 750 mg once a day. 2. Breathing treatment. 3. Oxygen. 4. Solu-Medrol. 5. Further evaluation of his infiltrates. 6. It looks like he is going to need a CT scan down the road to make sure that he does not have a tumor there. 7. We will admit to inpatient care. Based on my medical assessment and after consideration of patient risk factors, age, comorbidities, and patient's presenting symptoms, I expect the patient will remain in the hospital greater than or equal to 2 midnights and that the services needed warrant inpatient care. Estimated length of stay 2 days. The patient may reasonably be expected to be discharged or transferred to a hospital in 96 hours after admission to [facility]. Services needed: IV Solu-Medrol, IV antibiotics, breathing treatments, and oxygen. I certify that my determination is in accordance with my understanding of Medicare requirements for reasonable and necessary inpatient services. ORTEGA
--- NOTE | 2017-10-19 13:20 | Discharge Summary ---
DATE: 10/18/2017 at 5:30 p.m. DISCHARGE DIAGNOSES: 1. Pneumonia. 2. COPD. 3. Significant infiltrate, needs to be x-rayed and determined if it clears completely. 4. History of long-standing tobacco use disorder. 5. History of hypertension. 6. History of COPD. 7. History of alcoholism, stopped drinking about 3 years ago when he had a severe GI bleed and had part of his stomach removed and almost . He has had some problems with AFib when he is drinking alcohol. Seems to be an alcoholic heart but he is in normal sinus rhythm now. See EKG. ATTENDING PHYSICIAN: Aj Rosales DO REASON FOR HOSPITALIZATION: Shortness of breath. This 56-year-old male presented to the emergency department. He said about an hour before coming in to the emergency department, he started feeling very short of breath. He denies any chest pain, palpitations, fevers, chills, headaches, or visual changes. He has a chronic cough. He came into the hospital. Seen by Dr. Duque. Dr. Duque admitted him to the hospital for IV Levaquin, pneumonia, and COPD. Chest x-ray shows infiltrate in the left lower lobe. SIGNIFICANT FINDINGS: WBC 11,500, hemoglobin 15.3, potassium 4.0, BUN 9, creatinine 1.1, glucose 122. Chest x-ray showing an infiltrate in the left lower lobe, signs of COPD. THERAPY PROVIDED: He was given IV Levaquin 750 in the emergency department and set up for IV antibiotics, breathing treatments. HOSPITAL COURSE: The patient got very anxious to go home. At about 3 o'clock he was pacing the room. According to Respiratory, not short of breath, not requiring oxygen anymore. His pulse ox was good on room air. He left AMA prior to me getting to the floor to see him. At that point, Any D[place], the nurse, I asked her to call him up and tell him he should take Levaquin 500 mg once a day for 10 days. He should also follow up with Dr. Mcclure for a chest x-ray to make sure his infiltrate clears because he is a heavy smoker and we hate to have any problems underneath the infiltrate like a mass. If he gets more short of breath, return to the emergency department. The patient said he would follow up with his family doctor, Dr. Mcclure, and take the antibiotics. The antibiotics were called into the drug store, [employer]. The AMA forms were signed out before he left and he knows about the risk he is taking of and respiratory paralysis and serious hospitalization. ORTEGA
[2017-10-19] MEDS ORDERED: METHYLPREDNISOLONE PF 125MG/VIAL IVP SCH (14:00)
== END 2017-10-18 15:33 | disposition left against medical advice (07) ==
LOC: ER 04:59 → MEDSURG 07:54
PROVIDERS: ADMIT Emergency Medicine; ATTEND Emergency Medicine
DX: J44.1 Chronic obstructive pulmonary disease with (acute) exacerbation (principal); J18.9 Pneumonia, unspecified organism; I49.9 Cardiac arrhythmia, unspecified; K21.9 Gastro-esophageal reflux disease without esophagitis; F17.210 Nicotine dependence, cigarettes, uncomplicated; F10.21 Alcohol dependence, in remission; Z87.11 Personal history of peptic ulcer disease
CPT/HCPCS: 99285 ×2; 96365; 96375; 80053; 85027; 71046; 94640 ×2; 94761; 93005; 93010; G0378; J1956; 99223; J2930; J7613

== ENCOUNTER 2018-04-01 07:08 | Emergency (ER) | payer MEDICAID ==
[2018-04-01] MEDS ORDERED: METHYLPREDNISOLONE PF 125MG/VIAL IVP ONE (07:15)
[2018-04-01] MEDS ORDERED: IPRATROPIUM/ALBUTEROL (0.5MG/3MG) NEB INH ONE (07:15)
--- NOTE | 2018-04-01 07:20 | Emergency Department Record ---
History of Present Illness - General Chief Complaint: Shortness of breath Stated Complaint: TROUBLE BREATHING/COUGH Time Seen by Provider: 04/01/18 07:14 Source: Patient Mode of Arrival: Wheelchair Limitations: No limitations - History of Present Illness Initial Comments: 57 yo male presents to ED for evaluation of difficulty in breathing symptoms that began this morning. Patient reports "my COPD is acting up". Patient denies fevers, chills, or recent illness. Patient denies chest pain symptoms or palpitations. MD Complaint: Shortness of breath Onset/Timin -: Days(s) Improves With: Nothing Worsens With: Nothing Known History Of: COPD Associated Symptoms: Cough Treatments Prior to Arrival: Bronchodilator - Related Data Home Oxygen Therapy: No Previous Rx's Medication Instructions Recorded Prednisone [Prednisone 20Mg] 20 mg PO BID #10 tab 04/01/18 Allergies Allergy/AdvReac Type Severity Reaction Status Date / Time No Known Drug Allergies Allergy Unknown Verified 04/01/18 07:10 [NO KNOWN DRUG ALLERGIES] Travel Screening - Travel/Exposure Within Last 30 Days Have you traveled within the last 30 days?: No Review of Systems Constitutional: Denies: Chills, Fever, Malaise, Night sweats Eyes: Denies: Eye discharge, Eye pain ENT: Denies: Congestion, Ear pain, Epistaxis Respiratory: Reports: Cough, Dyspnea. Denies: Hemoptysis Cardiovascular: Denies: Chest pain, Dyspnea on exertion Endocrine: Denies: Fatigue, Heat or cold intolerance Gastrointestinal: Denies: Abdominal pain, Nausea, Vomiting Genitourinary: Denies: Incontinence, Retention Musculoskeletal: Denies: Arthralgia, Back pain Skin: Denies: Bruising, Change in color Neurological: Denies: Abnormal gait, Confusion, Headache, Seizure Psychiatric: Denies: Anxiety Hematological/Lymphatic: Denies: Anemia, Blood Clots Past Medical History - SOCIAL HISTORY Smoking Status: Heavy tobacco smoker (>10/day) Alcohol Use: None Drug Use: None - RESPIRATORY Hx Respiratory Disorders: Yes Hx COPD: Yes Hx Dyspnea: Yes Hx Pneumonia: Yes - CARDIOVASCULAR Hx Cardio Disorders: Yes Hx Irregular Heartbeat: Yes Hx Palpitations: Yes - NEURO Hx Neuro Disorders: Yes Hx Dizziness: Yes Hx Headaches: Yes - GI Hx GI Disorders: Yes Hx Reflux: Yes Hx Ulcer: Yes - Hx Genitourinary Disorders: No - ENDOCRINE Hx Endocrine Disorders: No Hx Diabetes: No Hx Thyroid Disease: No - MUSCULOSKELETAL Hx Musculoskeletal Disorders: Yes Hx Gout: Yes (bilat feet on occasion) - PSYCH Hx Psych Problems: Yes Hx Anxiety: Yes Hx Behavior Problems: Yes Hx Depression: Yes - HEMATOLOGY/ONCOLOGY Hx Hematology/Oncology Disorders: No Family Medical History Any Significant Family History?: Yes Hx Cancer: Mother Hx Diabetes: Brother/Sister Hx Heart Disease: Brother/Sister Physical Exam - General General Appearance: Alert, Oriented x3, Cooperative, Mild distress Limitations: No limitations - Head Head exam: Atraumatic, Normocephalic, Normal inspection Head exam detail: negative: Abrasion, Contusion, Wallis's sign, General tenderness, Hematoma, Laceration - Eye Eye exam: Normal appearance. negative: Conjunctival injection, Periorbital swelling, Periorbital tenderness, Scleral icterus - ENT Ear exam: negative: Auricular hematoma, Auricular trauma Nasal Exam: negative: Active bleeding, Discharge, Dried blood, Foreign body Mouth exam: negative: Drooling, Laceration, Muffled voice, Tongue elevation - Neck Neck exam: Normal inspection. negative: Meningismus, Tenderness - Respiratory Respiratory exam: Decreased breath sounds. negative: Rales, Respiratory distress, Rhonchi, Stridor - Cardiovascular Cardiovascular Exam: Regular rate, Normal rhythm, Normal heart sounds - GI/Abdominal GI/Abdominal exam: Soft. negative: Rebound, Rigid, Tenderness - Rectal Rectal exam: Deferred - exam: Deferred - Extremities Extremities exam: Normal inspection. negative: Calf tenderness, Pedal edema, Tenderness - Back Back exam: Denies: CVA tenderness (R), CVA tenderness (L) - Neurological Neurological exam: Alert, Normal gait, Oriented X3 - Psychiatric Psychiatric exam: Normal affect, Normal mood - Skin Skin exam: Normal color. negative: Abrasion Type of lesion: negative: abrasion Course Vital Signs 04/01/18 07:10 Temperature 98.5 F Pulse Rate 87 Respiratory 18 Rate Blood Pressure 147/82 Pulse Ox 92 L - Reevaluation(s) Reevaluation #1: 04/01/18 07:31 EKG: NSR 75. PACs Normal axis, normal intervals No acute ST-T wave changes Reevaluation #2: 04/01/18 07:49 Laboratory studies were reviewed, WBC 12.8, labs are otherwise grossly unremarkable for an acute process. CXR: Chronic changes Patient was updated on all results, BS improved, and patient appears stable for discharge at this time. Medical Decision Making - Lab Data Result diagrams: 04/01/18 07:15 04/01/18 07:15 Disposition Disposition: Discharge Clinical Impression: COPD (chronic obstructive pulmonary disease) Qualifiers: COPD type: unspecified COPD Qualified Code(s): J44.9 - Chronic obstructive pulmonary disease, unspecified Disposition: Home, Self-Care Condition: (2) Stable Instructions: COPD (Chronic Obstructive Pulmonary Disease) (ED) Additional Instructions: Return to ED if your symptoms worsen or if you have any concerns. Prednisone as directed. Follow-up with your family doctor in 3-5 days as directed. Prescriptions: Prednisone [Prednisone 20Mg] 20 mg PO BID #10 tab Time of Disposition: 07:53 Quality - Quality Measures Quality Measures: N/A - Blood Pressure Screening Does Patient Have Any of the Following: No Blood Pressure Classification: Pre-Hypertensive BP Reading Systolic Measurement: 147 Diastolic Measurement: 82 Screening for High Blood Pressure: < Pre-Hypertensive BP, F/U Documented > [ G8950] Pre-Hypertensive Follow-up Interventions: Referral to alternative/primary care provider.
[2018-04-01 07:25] LABS: BASO % 0.3 % (0-6); EOS % 6.6 % (0-6); HEMATOCRIT 47.2 % (42.0-52.0); HEMOGLOBIN 15.1 gm/dl (14.0-18.0); LYMPH % 10.3 % (16-45); MEAN CELL VOLUME 81.2 fl (81-97); MEAN CORPUSCULAR HEMOGLOBIN 25.9 pg (27-33); MEAN PLATELET VOLUME 9.1 fl (7.4-10.4); MONO % 6.8 % (0-9); PLATELET COUNT 396 K/uL (130-400); RED BLOOD COUNT 5.81 M/uL (4.40-5.70); RED CELL DISTRIBUTION WIDTH 16.4 % (11.5-14.5); WHITE BLOOD COUNT W/O DIFF 12.8 K/uL (4.2-12.2)
[2018-04-01 07:40] LABS: BLOOD UREA NITROGEN 7 mg/dL (6-20); CREATININE 0.7 mg/dL (0.7-1.2); EST GLOMERULAR FILTRATION RATE > 60 mL/min
[2018-04-01 07:41] LABS: TOTAL PROTEIN 7.2 g/dL (6.6-8.7)
[2018-04-01 07:43] LABS: GLUCOSE,RANDOM 116 mg/dL (74-109)
[2018-04-01 07:45] LABS: ALB/GLOB RATIO 1.3 (1.1-1.8); ALBUMIN 4.1 g/dL (4.0-5.0); ALKALINE PHOSPHATASE 103 U/L (40-129); ALT/SGPT 10 U/L (<41); AST/SGOT 14 U/L (10.0-50.0)
--- NOTE | 2018-04-02 07:27 | RADIOLOGY REPORT ---
EXAM: CHEST, TWO VIEWS HISTORY: PATIENT HAS COUGH. TECHNIQUE: Two views of the chest are provided along with the comparison study dated 10/18/17. FINDINGS: The cardiomediastinal silhouette is within normal limits for size and contour. A small hiatal hernia is noted. The ruba appear unremarkable. COPD changes are identified bilaterally. There is no radiographic evidence of a focal infiltrate, pleural effusion, or pneumothorax. IMPRESSION: COPD CHANGES ARE IDENTIFIED WITHOUT RADIOGRAPHIC EVIDENCE OF AN ACUTE INTRATHORACIC PROCESS. [facility]BER: [id number] [facility]
== END 2018-04-01 08:05 | disposition home or self-care (01) ==
LOC: ER 07:08
DX: J44.9 Chronic obstructive pulmonary disease, unspecified (principal); R06.02 Shortness of breath; F17.210 Nicotine dependence, cigarettes, uncomplicated
CPT/HCPCS: 71046; 80053; 85025; 93005; 93010; 94640; 99284; J2930

== ENCOUNTER 2018-04-04 10:06 | Emergency (ER) | payer MEDICAID ==
--- NOTE | 2018-04-04 10:21 | Emergency Department Record ---
History of Present Illness - General Chief Complaint: Shortness of breath Stated Complaint: JAIME Time Seen by Provider: 04/04/18 10:16 Source: Patient, RN notes reviewed Mode of Arrival: Ambulatory - History of Present Illness Initial Comments: patient is sob and still smoking cigs and known history of COPD and ex alcoholic for 3 years dry. No chest pain, he has a cough and wheezing. Onset/Timin -: Days(s) Consistency: Constant Improves With: Nothing Worsens With: Exertion Known History Of: COPD Associated Symptoms: Cough, Pain with inspiration, Sputum production Treatments Prior to Arrival: None - Related Data Previous Rx's Medication Instructions Recorded Prednisone [Prednisone 20Mg] 20 mg PO BID #10 tab 04/01/18 Azithromycin 250 mg PO DAILY #6 tablet 04/04/18 Prednisone [Prednisone 10Mg] 10 mg PO ASDIR #30 tab 04/04/18 Allergies Allergy/AdvReac Type Severity Reaction Status Date / Time No Known Drug Allergies Allergy Unknown Verified 04/01/18 07:10 [NO KNOWN DRUG ALLERGIES] Travel Screening - Travel/Exposure Within Last 30 Days Have you traveled within the last 30 days?: No Review of Systems Reviewed: No additional complaints except as noted below Constitutional: Reports: As per HPI. Denies: Chills, Fever, Malaise, Night sweats, Weakness, Weight change Eyes: Reports: As per HPI. Denies: Eye discharge, Eye pain, Photophobia, Vision change ENT: Reports: As per HPI. Denies: Congestion, Dental pain, Ear pain, Epistaxis , Hearing loss, Throat pain Respiratory: Reports: As per HPI, Cough, Dyspnea, Wheezes. Denies: Hemoptysis, Stridor Cardiovascular: Reports: As per HPI. Denies: Arrhythmia, Chest pain, Dyspnea on exertion, Edema, Murmurs, Orthopnea, Palpitations, Paroxysmal nocturnal dyspnea, Rheumatic Fever, Syncope Endocrine: Reports: As per HPI. Denies: Fatigue, Heat or cold intolerance, Polydipsia, Polyuria Gastrointestinal: Reports: As per HPI. Denies: Abdominal pain, Constipation, Diarrhea, Hematemesis, Hematochezia, Melena, Nausea, Vomiting Genitourinary: Reports: As per HPI. Denies: Dysuria, Frequency, Hematuria, Incontinence, Retention, Testicular pain, Testicular mass, Urgency Musculoskeletal: Reports: As per HPI. Denies: Arthralgia, Back pain, Gout, Joint swelling, Myalgia, Neck pain Skin: Reports: As per HPI. Denies: Bruising, Change in color, Change in hair/ nails, Lesions, Pruritus, Rash Neurological: Reports: As per HPI. Denies: Abnormal gait, Confusion, Headache, Numbness, Paresthesias, Seizure, Tingling, Tremors, Vertigo, Weakness Psychiatric: Reports: As per HPI. Denies: Anxiety, Auditory hallucinations, Depression, Homicidal thoughts, Suicidal thoughts, Visual hallucinations Hematological/Lymphatic: Reports: As per HPI. Denies: Anemia, Blood Clots, Easy bleeding, Easy bruising, Swollen glands Past Medical History - SOCIAL HISTORY Smoking Status: Heavy tobacco smoker (>10/day) Alcohol Use: None Drug Use Detail:: Marijuana - RESPIRATORY Hx Respiratory Disorders: Yes Hx COPD: Yes Hx Dyspnea: Yes Hx Pneumonia: Yes - CARDIOVASCULAR Hx Cardio Disorders: Yes Hx Irregular Heartbeat: Yes Hx Palpitations: Yes - NEURO Hx Neuro Disorders: Yes Hx Dizziness: Yes Hx Headaches: Yes - GI Hx GI Disorders: Yes Hx Reflux: Yes Hx Ulcer: Yes - Hx Genitourinary Disorders: No - ENDOCRINE Hx Endocrine Disorders: No Hx Diabetes: No Hx Thyroid Disease: No - MUSCULOSKELETAL Hx Musculoskeletal Disorders: Yes Hx Gout: Yes (bilat feet on occasion) - PSYCH Hx Psych Problems: Yes Hx Anxiety: Yes Hx Behavior Problems: Yes Hx Depression: Yes - HEMATOLOGY/ONCOLOGY Hx Hematology/Oncology Disorders: No Family Medical History Any Significant Family History?: Yes Hx Cancer: Mother Hx Diabetes: Brother/Sister Hx Heart Disease: Brother/Sister Physical Exam - General General Appearance: Alert, Oriented x3, Cooperative, Mild distress - Head Head exam: Normal inspection - Eye Eye exam: Normal appearance, PERRL Pupils: Normal accommodation - ENT ENT exam: Normal exam, Mucous membranes moist, Normal external ear exam, Normal orophraynx, TM's normal bilaterally Ear exam: Normal external inspection. negative: External canal tenderness Nasal Exam: Normal inspection. negative: Discharge, Sinus tenderness Mouth exam: Normal external inspection, Tongue normal Teeth exam: Normal inspection. negative: Dental caries Throat exam: Normal inspection. negative: Tonsillar erythema, Tonsillar exudate - Neck Neck exam: Normal inspection, Full ROM. negative: Tenderness - Respiratory Respiratory exam: Wheezes. negative: Respiratory distress - Cardiovascular Cardiovascular Exam: Regular rate, Normal rhythm, Normal heart sounds - GI/Abdominal GI/Abdominal exam: Soft, Normal bowel sounds. negative: Tenderness - Rectal Rectal exam: Deferred - exam: Deferred - Extremities Extremities exam: Normal inspection, Full ROM, Normal capillary refill. negative: Tenderness - Back Back exam: Reports: Normal inspection, Full ROM. Denies: Muscle spasm, Rash noted, Tenderness - Neurological Neurological exam: Alert, Normal gait, Oriented X3, Reflexes normal - Psychiatric Psychiatric exam: Normal affect, Normal mood - Skin Skin exam: Dry, Intact, Normal color, Warm Course Vital Signs 04/04/18 10:14 Temperature 98.6 F Pulse Rate 103 H Respiratory 20 Rate Blood Pressure 167/78 Pulse Ox 93 L - Reevaluation(s) Reevaluation #1: 04/04/18 12:21 patient states he is feeling better Medical Decision Making - Data Complexity MDM Data: Labs Ordered and/or Reviewed (wbc 9,400), X-Ray Ordered and/or Reviewed (chest xray neg for infiltrates), EKG Ordered and/or Reviewed (nsr , no acute changes) - Lab Data Result diagrams: 04/04/18 10:50 04/04/18 10:50 Disposition Clinical Impression: Acute exacerbation of chronic obstructive pulmonary disease (COPD), Bronchitis Disposition: Home, Self-Care Condition: (1) Good Instructions: Dyspnea (ED), COPD (Chronic Obstructive Pulmonary Disease) (ED) Additional Instructions: follow up with family Dr in one week Prescriptions: Azithromycin 250 mg PO DAILY #6 tablet Prednisone [Prednisone 10Mg] 10 mg PO ASDIR #30 tab Forms: Patient Portal Access Time of Disposition: 12:26 Quality - Quality Measures Quality Measures: N/A - Blood Pressure Screening Does Patient Have Any of the Following: No Blood Pressure Classification: Hypertensive Reading Systolic Measurement: 167 Diastolic Measurement: 78 Screening for High Blood Pressure: < First Hypertensive BP, F/U Documented > [ G8950] First Hypertensive Follow-up Interventions: Referral to alternative/primary care provider.
[2018-04-04] MEDS ORDERED: IPRATROPIUM/ALBUTEROL (0.5MG/3MG) NEB INH ONE (10:34)
[2018-04-04] MEDS ORDERED: METHYLPREDNISOLONE PF 125MG/VIAL IVP ONE (11:09)
[2018-04-04] MEDS ORDERED: 0.9 % SODIUM CHLORIDE 1,000 ML BAG IV ONE (11:10)
[2018-04-04 11:29] LABS: HEMATOCRIT 45.6 % (42.0-52.0); HEMOGLOBIN 14.8 gm/dl (14.0-18.0); MEAN CELL VOLUME 81.4 fl (81-97); MEAN CORPUSCULAR HEMOGLOBIN 26.4 pg (27-33); MEAN CORPUSCULAR HGB CONC 32.5 g/dl (32-36); MEAN PLATELET VOLUME 9.7 fl (7.4-10.4); PLATELET COUNT 427 K/uL (130-400); RED CELL DISTRIBUTION WIDTH 16.2 % (11.5-14.5); WHITE BLOOD COUNT W/O DIFF 9.4 K/uL (4.2-12.2)
[2018-04-04 11:44] LABS: BLOOD UREA NITROGEN 11 mg/dL (6-20); CREATININE 0.8 mg/dL (0.7-1.2); EST GLOMERULAR FILTRATION RATE > 60 mL/min
[2018-04-04 11:47] LABS: GLUCOSE,RANDOM 147 mg/dL (74-109)
[2018-04-04] MEDS ORDERED: CEFTRIAXONE SODIUM 1 GM in 0.9 % SODIUM CHLORIDE 100ML 100 ML IVPB ONE (12:12)
[2018-04-04] MEDS ORDERED: AZITHROMYCIN 500 MG TABLET PO ONE (12:12)
[2018-04-04] MEDS ORDERED: GUAIFENESIN/D-METH. 10 ML UDC PO ONE (12:20)
--- NOTE | 2018-04-05 09:08 | RADIOLOGY REPORT ---
EXAM: CHEST, TWO VIEWS HISTORY: DIFFICULTY BREATHING. TECHNIQUE: Frontal and lateral views of the chest were performed. Comparison: 04/01/18. FINDINGS: The heart size is normal. Calcified right hilar lymph nodes. No infiltrate or pleural effusion. There is osteopenia with a compression fracture deformity at the thoracolumbar junction. IMPRESSION: NO ACUTE PULMONARY DISEASE PROCESS. JOB NUMBER: [id number] MTDD
== END 2018-04-04 13:04 | disposition home or self-care (01) ==
LOC: ER 10:06
DX: J44.1 Chronic obstructive pulmonary disease with (acute) exacerbation (principal); J20.9 Acute bronchitis, unspecified; J44.0 Chronic obstructive pulmonary disease with (acute) lower respiratory infection; F17.210 Nicotine dependence, cigarettes, uncomplicated
CPT/HCPCS: 71046; 80048; 85027; 93005; 93010; 94640; 96365; 96375; 99284; J2930; J7030

== ENCOUNTER 2018-06-06 10:45 | Emergency (ER) | payer MEDICAID ==
[2018-06-06] MEDS ORDERED: IPRATROPIUM/ALBUTEROL (0.5MG/3MG) NEB INH ONE (10:51)
[2018-06-06] MEDS ORDERED: ALBUTEROL SULFATE (0.083%) 2.5 MG/3 ML NEB INH ONE (10:51)
[2018-06-06] MEDS ORDERED: METHYLPREDNISOLONE PF 125MG/VIAL IVP ONE (10:51)
--- NOTE | 2018-06-06 10:53 | Emergency Department Record ---
History of Present Illness - General Chief Complaint: Shortness of breath Stated Complaint: JAIME (COPD) Time Seen by Provider: 06/06/18 10:48 Source: Patient, RN notes reviewed - Related Data Previous Rx's Medication Instructions Recorded Albuterol Sulfate [Proventil Hfa] 1 - 2 puff IH Q4H PRN #1 inhaler 06/06/18 Azithromycin 250 mg PO DAILY #6 tablet 06/06/18 Budesonide [Pulmicort Flexhaler] 2 puff IH BID #1 inhaler 06/06/18 Prednisone [Prednisone 10Mg] 10 mg PO ASDIR #30 tab 06/06/18 Umeclidinium Rule [Incruse 62.5 mcg IH DAILY #1 disk 06/06/18 Ellipta] Allergies Allergy/AdvReac Type Severity Reaction Status Date / Time No Known Drug Allergies Allergy Unknown Unverified 05/19/18 16:13 [NO KNOWN DRUG ALLERGIES] Past Medical History - SOCIAL HISTORY Smoking Status: Heavy tobacco smoker (>10/day) Drug Use Detail:: Marijuana - RESPIRATORY Hx Respiratory Disorders: Yes Hx COPD: Yes Hx Dyspnea: Yes Hx Pneumonia: Yes - CARDIOVASCULAR Hx Cardio Disorders: Yes Hx Irregular Heartbeat: Yes Hx Palpitations: Yes - NEURO Hx Neuro Disorders: Yes Hx Dizziness: Yes Hx Headaches: Yes - GI Hx GI Disorders: Yes Hx Reflux: Yes Hx Ulcer: Yes - Hx Genitourinary Disorders: No - ENDOCRINE Hx Endocrine Disorders: No Hx Diabetes: No Hx Thyroid Disease: No - MUSCULOSKELETAL Hx Musculoskeletal Disorders: Yes Hx Gout: Yes (bilat feet on occasion) - PSYCH Hx Psych Problems: Yes Hx Anxiety: Yes Hx Behavior Problems: Yes Hx Depression: Yes - HEMATOLOGY/ONCOLOGY Hx Hematology/Oncology Disorders: No Family Medical History Hx Cancer: Mother Hx Diabetes: Brother/Sister Hx Heart Disease: Brother/Sister Medical Decision Making - Lab Data Result diagrams: 06/06/18 10:54 06/06/18 10:54 Disposition Clinical Impression: COPD (chronic obstructive pulmonary disease) with chronic bronchitis, Bronchitis Condition: (1) Good Instructions: Acute Bronchitis (ED), COPD (Chronic Obstructive Pulmonary Disease) (ED) Additional Instructions: drink fluids and follow up with primary in 4 - 7 days Prescriptions: Albuterol Sulfate [Proventil Hfa] 1 - 2 puff IH Q4H PRN #1 inhaler PRN Reason: Wheezing Azithromycin 250 mg PO DAILY #6 tablet Budesonide [Pulmicort Flexhaler] 2 puff IH BID #1 inhaler Prednisone [Prednisone 10Mg] 10 mg PO ASDIR #30 tab Umeclidinium Rule [Incruse Ellipta] 62.5 mcg IH DAILY #1 disk Forms: Patient Portal Access Quality - Quality Measures Quality Measures: N/A - Blood Pressure Screening Does Patient Have Any of the Following: No Blood Pressure Classification: Hypertensive Reading Systolic Measurement: 144 Diastolic Measurement: 72 Screening for High Blood Pressure: < Pre-Hypertensive BP, F/U Documented > [ G8950] Pre-Hypertensive Follow-up Interventions: Referral to alternative/primary care provider.
[2018-06-06] MEDS ORDERED: 0.9 % SODIUM CHLORIDE 1000ML 1,000 ML IV ONE (10:55)
[2018-06-06 11:11] LABS: BASO % 0.4 % (0-6); EOS % 1.3 % (0-6); GRAN % 69.6 % (47-80); HEMATOCRIT 46.4 % (42.0-52.0); HEMOGLOBIN 15.4 gm/dl (14.0-18.0); LYMPH % 16.2 % (16-45); MEAN CELL VOLUME 79.6 fl (81-97); MEAN CORPUSCULAR HEMOGLOBIN 26.4 pg (27-33); MEAN CORPUSCULAR HGB CONC 33.2 g/dl (32-36); MEAN PLATELET VOLUME 9.3 fl (7.4-10.4); MONO % 12.5 % (0-9); PLATELET COUNT 293 K/uL (130-400); RED BLOOD COUNT 5.83 M/uL (4.40-5.70); RED CELL DISTRIBUTION WIDTH 16.8 % (11.5-14.5); WHITE BLOOD COUNT W/O DIFF 6.7 K/uL (4.2-12.2)
--- NOTE | 2018-06-06 11:17 | Emergency Department Record ---
History of Present Illness - General Chief Complaint: Shortness of breath Stated Complaint: JAIME (COPD) Time Seen by Provider: 06/06/18 10:48 Source: Patient, RN notes reviewed Mode of Arrival: Ambulatory - History of Present Illness Initial Comments: wheezing and sob and he ran out of his inhalers and he is a known copd patient and he has a nebulizer at home. Patient states no alcohol for 3 years. MD Complaint: "Asthma attack", Shortness of breath Onset/Timin -: Hour(s) Consistency: Constant Improves With: Bronchodilators, Upright position Worsens With: Lying flat, Movement Known History Of: COPD Associated Symptoms: Cough Treatments Prior to Arrival: None - Related Data Home Oxygen Therapy: No Previous Rx's Medication Instructions Recorded Albuterol Sulfate [Proventil Hfa] 1 - 2 puff IH Q4H PRN #1 inhaler 06/06/18 Azithromycin 250 mg PO DAILY #6 tablet 06/06/18 Budesonide [Pulmicort Flexhaler] 2 puff IH BID #1 inhaler 06/06/18 Prednisone [Prednisone 10Mg] 10 mg PO ASDIR #30 tab 06/06/18 Umeclidinium Delmita [Incruse 62.5 mcg IH DAILY #1 disk 06/06/18 Ellipta] Allergies Allergy/AdvReac Type Severity Reaction Status Date / Time No Known Drug Allergies Allergy Unknown Unverified 05/19/18 16:13 [NO KNOWN DRUG ALLERGIES] Travel Screening - Travel/Exposure Within Last 30 Days Have you traveled within the last 30 days?: No Review of Systems Reviewed: No additional complaints except as noted below Constitutional: Reports: As per HPI. Denies: Chills, Fever, Malaise, Night sweats, Weakness, Weight change Eyes: Reports: As per HPI. Denies: Eye discharge, Eye pain, Photophobia, Vision change ENT: Reports: As per HPI. Denies: Congestion, Dental pain, Ear pain, Epistaxis , Hearing loss, Throat pain Respiratory: Reports: As per HPI, Cough, Dyspnea, Wheezes. Denies: Hemoptysis, Stridor Cardiovascular: Reports: As per HPI. Denies: Arrhythmia, Chest pain, Dyspnea on exertion, Edema, Murmurs, Orthopnea, Palpitations, Paroxysmal nocturnal dyspnea, Rheumatic Fever, Syncope Endocrine: Reports: As per HPI. Denies: Fatigue, Heat or cold intolerance, Polydipsia, Polyuria Gastrointestinal: Reports: As per HPI. Denies: Abdominal pain, Constipation, Diarrhea, Hematemesis, Hematochezia, Melena, Nausea, Vomiting Genitourinary: Reports: As per HPI. Denies: Dysuria, Frequency, Hematuria, Incontinence, Retention, Testicular pain, Testicular mass, Urgency Musculoskeletal: Reports: As per HPI. Denies: Arthralgia, Back pain, Gout, Joint swelling, Myalgia, Neck pain Skin: Reports: As per HPI. Denies: Bruising, Change in color, Change in hair/ nails, Lesions, Pruritus, Rash Neurological: Reports: As per HPI. Denies: Abnormal gait, Confusion, Headache, Numbness, Paresthesias, Seizure, Tingling, Tremors, Vertigo, Weakness Psychiatric: Reports: As per HPI. Denies: Anxiety, Auditory hallucinations, Depression, Homicidal thoughts, Suicidal thoughts, Visual hallucinations Hematological/Lymphatic: Reports: As per HPI. Denies: Anemia, Blood Clots, Easy bleeding, Easy bruising, Swollen glands Past Medical History - SOCIAL HISTORY Smoking Status: Heavy tobacco smoker (>10/day) Drug Use Detail:: Marijuana - RESPIRATORY Hx Respiratory Disorders: Yes Hx COPD: Yes Hx Dyspnea: Yes Hx Pneumonia: Yes - CARDIOVASCULAR Hx Cardio Disorders: Yes Hx Irregular Heartbeat: Yes Hx Palpitations: Yes - NEURO Hx Neuro Disorders: Yes Hx Dizziness: Yes Hx Headaches: Yes - GI Hx GI Disorders: Yes Hx Reflux: Yes Hx Ulcer: Yes - Hx Genitourinary Disorders: No - ENDOCRINE Hx Endocrine Disorders: No Hx Diabetes: No Hx Thyroid Disease: No - MUSCULOSKELETAL Hx Musculoskeletal Disorders: Yes Hx Gout: Yes (bilat feet on occasion) - PSYCH Hx Psych Problems: Yes Hx Anxiety: Yes Hx Behavior Problems: Yes Hx Depression: Yes - HEMATOLOGY/ONCOLOGY Hx Hematology/Oncology Disorders: No Family Medical History Hx Cancer: Mother Hx Diabetes: Brother/Sister Hx Heart Disease: Brother/Sister Physical Exam - General General Appearance: Alert, Oriented x3, Cooperative, No acute distress - Head Head exam: Normal inspection - Eye Eye exam: Normal appearance, PERRL Pupils: Normal accommodation - ENT ENT exam: Normal exam, Mucous membranes moist, Normal external ear exam, Normal orophraynx, TM's normal bilaterally Ear exam: Normal external inspection. negative: External canal tenderness Nasal Exam: Normal inspection. negative: Discharge, Sinus tenderness Mouth exam: Normal external inspection, Tongue normal Teeth exam: Normal inspection. negative: Dental caries Throat exam: Normal inspection. negative: Tonsillar erythema, Tonsillar exudate - Neck Neck exam: Normal inspection, Full ROM. negative: Tenderness - Respiratory Respiratory exam: Wheezes. negative: Respiratory distress - Cardiovascular Cardiovascular Exam: Regular rate, Normal rhythm, Normal heart sounds - GI/Abdominal GI/Abdominal exam: Soft, Normal bowel sounds. negative: Tenderness - Rectal Rectal exam: Deferred - exam: Deferred - Extremities Extremities exam: Normal inspection, Full ROM, Normal capillary refill. negative: Tenderness - Back Back exam: Reports: Normal inspection, Full ROM. Denies: Muscle spasm, Rash noted, Tenderness - Neurological Neurological exam: Alert, Normal gait, Oriented X3, Reflexes normal - Psychiatric Psychiatric exam: Normal affect, Normal mood - Skin Skin exam: Dry, Intact, Normal color, Warm Course Vital Signs 06/06/18 06/06/18 10:49 11:05 Temperature 98.3 F Pulse Rate 101 H 80 Respiratory 22 20 Rate Blood Pressure 144/72 Pulse Ox 91 L 97 - Reevaluation(s) Reevaluation #1: 06/06/18 11:24 breathing better Medical Decision Making - Data Complexity MDM Data: Labs Ordered and/or Reviewed, X-Ray Ordered and/or Reviewed (chest xray copd and similiar chronic changes as before) - Lab Data Result diagrams: 06/06/18 10:54 06/06/18 10:54 Disposition Clinical Impression: COPD (chronic obstructive pulmonary disease) with chronic bronchitis, Bronchitis Condition: (1) Good Instructions: COPD (Chronic Obstructive Pulmonary Disease) (ED), Acute Bronchitis (ED) Additional Instructions: drink fluids and follow up with primary in 4 - 7 days Prescriptions: Albuterol Sulfate [Proventil Hfa] 1 - 2 puff IH Q4H PRN #1 inhaler PRN Reason: Wheezing Azithromycin 250 mg PO DAILY #6 tablet Budesonide [Pulmicort Flexhaler] 2 puff IH BID #1 inhaler Prednisone [Prednisone 10Mg] 10 mg PO ASDIR #30 tab Umeclidinium [place] [Incruse Ellipta] 62.5 mcg IH DAILY #1 disk Forms: Patient Portal Access Quality - Quality Measures Quality Measures: N/A - Blood Pressure Screening Does Patient Have Any of the Following: No Blood Pressure Classification: Hypertensive Reading Systolic Measurement: 144 Diastolic Measurement: 72 Screening for High Blood Pressure: < First Hypertensive BP, F/U Documented > [ G8950] First Hypertensive Follow-up Interventions: Referral to alternative/primary care provider.
[2018-06-06 11:22] LABS: BLOOD UREA NITROGEN 7 mg/dL (6-20); CREATININE 0.8 mg/dL (0.7-1.2); EST GLOMERULAR FILTRATION RATE > 60 mL/min
[2018-06-06 11:25] LABS: GLUCOSE,RANDOM 126 mg/dL (74-109); INFLUENZA A NEGATIVE (NEGATIVE); INFLUENZA B NEGATIVE (NEGATIVE)
[2018-06-06] MEDS ORDERED: CEFTRIAXONE SODIUM 2 GM in 0.9 % SODIUM CHLORIDE 100ML 100 ML IVPB ONE (11:48)
[2018-06-06] MEDS ORDERED: AZITHROMYCIN 500 MG TABLET PO ONE (12:36)
--- NOTE | 2018-06-07 19:29 | RADIOLOGY REPORT ---
EXAM: CHEST 2 VIEWS HISTORY: WHEEZING, HISTORY OF COPD. TECHNIQUE: PA and lateral views. COMPARISON: Two-view chest 04/04/18. FINDINGS: Heart size is normal. Lungs appear hyperinflated suggesting COPD. There is probably some mild scattered fibrosis in the lungs, also present previously. When comparison is made with the prior study, no definite acute infiltrate seen. No pleural effusion or pneumothorax evident. Small hiatal hernia. Compression fracture of the body of what is probably T12, also present previously. Scoliosis again noted. IMPRESSION: 1. HYPERINFLATION CONSISTENT WITH COPD, PROBABLY WITH SOME SCATTERED FIBROSIS, BEFORE. 2. SMALL HIATAL HERNIA, BEFORE. 3. CHRONIC COMPRESSION FRACTURE OF T12. 4. SCOLIOSIS. 5. NO DEFINITE ACUTE INFILTRATE SEEN. JOB NUMBER: [id number] MTDD
== END 2018-06-06 13:27 | disposition home or self-care (01) ==
LOC: ER 10:45
DX: J44.9 Chronic obstructive pulmonary disease, unspecified (principal); R06.02 Shortness of breath; F17.210 Nicotine dependence, cigarettes, uncomplicated
CPT/HCPCS: 71046; 80048; 85025; 87400; 94640; 96361; 96365; 96375; 99284; J2930; J7613